=== PATIENT | female | born 1945 | race Caucasian/White ===

== ENCOUNTER → 2016-06-15 | Outpatient (CLI) | payer OTHER, MEDICARE ==
[~2016-06-15] VITALS: Ht 162.6 cm; Wt 65.2 kg
[~2016-06-15] MED LIST: ASPIRIN81 M2 PO; CENTRUM SILVER1 EAC3 PO; COQ-10100 MG PO; FISH OIL 1,2001 EAC4 PO; LO-DOSE ASPIRIN81 M2 PO; LOSARTAN-HCTZ1 EAC1 PO; LOVASTATIN20 MG PO; MOVE FREE JOIN1 EACH PO; PROBIOTIC1 EAC1 PO; TYLENOL ARTHRI650 MG PO; XALATAN2.5 ML BOTH EYES
== END | disposition home or self-care (01) ==
LOC: AMB 05-28 11:30
PROC: 0DB48ZX Excision of Esophagogastric Junction, Via Natural or Artificial Opening Endoscopic, Diagnostic (ICD-10-PCS; principal; 2016-06-15)
DX: K21.9 Gastro-esophageal reflux disease without esophagitis (principal); K22.70 Barrett's esophagus without dysplasia; K20.9 Esophagitis, unspecified; K44.9 Diaphragmatic hernia without obstruction or gangrene; I10 Essential (primary) hypertension; M19.90 Unspecified osteoarthritis, unspecified site
CPT/HCPCS: 88305; J2250; J2405